=== PATIENT | male | born 2000 | race African-American/Black ===

== ENCOUNTER 2025-02-26 23:00 | Emergency (ER) | payer MEDICAID, OTHER ==
[~2025-02-26] VITALS: Ht 175.3 cm; Wt 75.0 kg
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
[2025-02-27] MEDS: ONDANSETRON HCL 4 MG/2 ML VIAL IV ONE (00:43)
[2025-02-27] MEDS: SODIUM CHLORIDE 0.9% 1,000 ML IV ONE (00:43)
[2025-02-27] MEDS: MORPHINE SULFATE 4 MG/ML SYR/VIAL IV ONE ×2 (00:44→04:50)
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
[2025-02-27 05:45] LABS: Hematocrit 48.5 % (41.0-53.0); Hemoglobin 16.7 g/dL (13.5-17.5); Mean Corpuscular Hemoglobin 33.3 pg (28.0-32.0); Mean Corpuscular Volume 96.9 fL (80.0-100.0); Nucleated Red Blood Cells % 0.0 %
[2025-02-27] MEDS: ceFAZolin 2 GM/D5W50ml 50 ML IV ONE (05:47)
[2025-02-27 06:14] LABS: Alanine Aminotransferase 31 U/L (7-40); Alkaline Phosphatase 61 U/L (46-116); Anion Gap 10 (5-15); BUN/Creatinine Ratio 8.9 (10.0-20.0); Blood Urea Nitrogen 10 mg/dL (9-23); Calcium 10.1 mg/dL (8.7-10.4); Carbon Dioxide 27 mmol/L (20-31); Glucose 106 mg/dL (74-106); Total Protein 7.6 g/dL (5.7-8.2)
[2025-02-27 06:15] LABS: Bilirubin, Total 0.8 mg/dL (0.2-1.0)
[2025-02-27 06:16] LABS: Albumin 5.0 g/dL (3.2-4.8); Chloride 106 mmol/L (98-107); Potassium 4.8 mmol/L (3.5-5.1); Sodium 143 mmol/L (136-145)
[2025-02-27 09:21] VITALS: BP 110/51; PULSE 80; RESP 15; TEMP 97.1; O2SAT 96
== END 2025-02-27 05:18 | disposition short-term general hospital (02) ==
LOC: ER 23:00
DX: S02.609A Fracture of mandible, unspecified, initial encounter for closed fracture (principal); Y04.8XXA Assault by other bodily force, initial encounter; Y93.67 Activity, basketball; Y92.89 Other specified places as the place of occurrence of the external cause; Y99.8 Other external cause status
CPT/HCPCS: 36415; 70450; 70486; 72125; 73562; 80053; 85025; 96361; 96365; 96366; 96375; 96376; 99285; J0690; J2270; J2405; J7030